=== PATIENT | female | born 1990 | race Caucasian/White ===

== ENCOUNTER 2017-10-01 12:46 | Emergency (ER) | payer OTHER ==
[2017-10-01 12:52] VITALS: BP 134/90
[2017-10-01] MEDS ORDERED: FAMOTIDINE 20 MG TABLET PO ONE (13:09)
[2017-10-01] MEDS ORDERED: PREDNISONE 20 MG TABLET PO ONE (13:09)
[2017-10-01] MEDS ORDERED: IBUPROFEN 600 MG TABLET PO ONE (13:09)
[2017-10-01] MEDS ORDERED: DIPHENHYDRAMINE HCL 25 MG CAPSULE PO ONE (13:09)
--- NOTE | 2017-10-01 13:13 | ER Document Report ---
HPI - HPI Patient complains to provider of: insect bite Onset: Just prior to arrival Onset/Duration: Sudden Quality of pain: Achy Pain Level: 4 Context: Patient states she was walking in long grass and felt an insect bite her ankle. Patient states that she had immediate swelling to her left knee with a burning pain from the knee distally. Patient states that the knee was initially very swollen but she applied ice packs to the knee and it is now no longer swollen. Patient denies any difficulty breathing. Associated Symptoms: denies: Chest pain, Fever, Nausea, Vomiting, Shortness of breath Exacerbated by: Denies Relieved by: Denies Similar symptoms previously: No Recently seen / treated by doctor: No - ROS ROS below otherwise negative: Yes Systems Reviewed and Negative: Yes All other systems reviewed and negative - CONSTITUTIONAL Constitutional: DENIES: Fever, Chills - CARDIOVASCULAR Cardiovascular: DENIES: Chest pain - RESPIRATORY Respiratory: DENIES: Trouble Breathing, Coughing - GASTROINTESTINAL Gastrointestinal: DENIES: Nausea, Patient vomiting - REPRODUCTIVE LMP: ? - MUSCULOSKELETAL Musculoskeletal: REPORTS: Extremity pain, Swelling - DERM Skin Color: Normal Skin Problems: None Past Medical History - General Information source: Patient - Social History Smoking Status: Former Smoker Chew tobacco use (# tins/day): No Frequency of alcohol use: Social Drug Abuse: None, Marijuana Occupation: door to door sales Family History: Reviewed & Not Pertinent Patient has suicidal ideation: No Patient has homicidal ideation: No Renal/ Medical History: Denies: Hx Peritoneal Dialysis Psychiatric Medical History: Reports: Hx Anxiety Past Surgical History: Reports: Hx Breast Surgery, Hx Orthopedic Surgery Vertical Provider Document - CONSTITUTIONAL Agree With Documented VS: Yes Exam Limitations: No Limitations General Appearance: WD/WN, No Apparent Distress - INFECTION CONTROL TRAVEL OUTSIDE OF THE [place] IN LAST 30 DAYS: No - HEENT HEENT: Atraumatic, Normal ENT Exam, Normocephalic Notes: No angioedema, no potential airway compromise - NECK Neck: Normal Inspection, Supple - RESPIRATORY Respiratory: Breath Sounds Normal, No Respiratory Distress - CARDIOVASCULAR Cardiovascular: Regular Rate, Regular Rhythm - BACK Back: Normal Inspection - MUSCULOSKELETAL/EXTREMETIES Musculoskeletal/Extremeties: MAEW - NEURO Level of Consciousness: Awake, Alert, Appropriate Motor/Sensory: No Motor Deficit - DERM Integumentary: Warm, Dry Notes: Patient with multiple erythematous macular lesions to bilateral lower extremities, patient with tender erythematous lesion to posterior left ankle, no noted edema Course - Re-evaluation Re-evalutation: 10/01/17 Patient with no swelling or edema noted to left lower extremity. Patient with multiple insect bites to bilateral lower extremities. No surrounding erythema. Patient nontoxic in appearance. Patient reports that swelling symptoms have resolved at this time. - Vital Signs Vital signs: Temp Pulse Resp BP Pulse Ox 99.3 F 117 H 16 134/90 H 97 10/01/17 12:50 10/01/17 12:50 10/01/17 12:50 10/01/17 12:50 10/01/17 12:50 Discharge - Discharge Clinical Impression: Insect bite Qualifiers: Encounter type: initial encounter Qualified Code(s): W57.XXXA - Bitten or stung by nonvenomous insect and other nonvenomous arthropods, initial encounter Condition: Stable Disposition: HOME, SELF-CARE Instructions: Use of Diphenhydramine, Insect Bites ([facility]), Insect Sting ([facility]), Steroid Medication Additional Instructions: Return immediately for any new or worsening symptoms Followup with your primary care provider, call tomorrow to make a followup appointment Take Benadryl [id number] to help with your symptoms Prescriptions: Famotidine [Pepcid 20 mg Tablet] 20 mg PO BID #12 tablet Naproxen [Naprosyn 250 Nmg Tablet] 1 tab PO BID #14 tablet Prednisone [Deltasone 10 mg Tablet] 10 mg PO ASDIR PRN #21 tablet PRN Reason: Forms: Return to Work Referrals: [facility] [Provider Group] - Follow up as needed
== END 2017-10-01 13:27 | disposition home or self-care (01) ==
LOC: ER 12:46
DX: S90.569A Insect bite (nonvenomous), unspecified ankle, initial encounter (principal); S80.862A Insect bite (nonvenomous), left lower leg, initial encounter; S80.861A Insect bite (nonvenomous), right lower leg, initial encounter; W57.XXXA Bitten or stung by nonvenomous insect and other nonvenomous arthropods, initial encounter; Y93.01 Activity, walking, marching and hiking; Z87.891 Personal history of nicotine dependence
CPT/HCPCS: 99282; J7512